=== PATIENT | male | born 1980 ===

== ENCOUNTER 2025-05-03 22:14 | Emergency (ER) | payer SELFPAY | END 2025-05-03 23:33 | disposition home or self-care (01) | LOC: ERS 22:14 | DX: T62.0X1A Toxic effect of ingested mushrooms, accidental (unintentional), initial encounter (principal); F17.210 Nicotine dependence, cigarettes, uncomplicated; X58.XXXA Exposure to other specified factors, initial encounter | CPT/HCPCS: 99283 ==